=== PATIENT | female | born 1985 | race Two or more races ===

== ENCOUNTER 2018-12-13 13:25 | Emergency (ER) | payer OTHER ==
[2018-12-13 13:36] VITALS: BP 100/68; PULSE 56; TEMP 97.8; BMI 24.2
--- NOTE | 2018-12-13 15:07 | PDOC ---
History of Present Illness - General Chief Complaint: Abscess Boil Stated Complaint: CYST Time Seen by Provider: 12/13/18 13:39 History Source: Patient Exam Limitations: No Limitations Past History - Travel Traveled outside of the country in the last 30 days: No Close contact w/someone who was outside of country & ill: No - Past Medical History Allergies/Adverse Reactions: Allergies Allergy/AdvReac Type Severity Reaction Status Date / Time No Known Allergies Allergy Verified 12/13/18 13:36 Home Medications: Ambulatory Orders Ibuprofen [Motrin -] 600 mg PO TID #40 tablet 04/15/13 Cephalexin Monohydrate [Keflex -] 500 mg PO BID #14 capsule 12/13/18 Sulfamethoxazole/Trimethoprim [Bactrim Ds -] 1 tab PO BID #14 tablet 12/13/18 Asthma: Yes COPD: No Other medical history: MRSA 2017 abscess to eye cleared in [place] - Surgical History Appendectomy: Yes - Psycho Social/Smoking Cessation Hx Smoking History: Never smoked Review of Systems - Review of Systems Able to Perform ROS?: Yes Comments:: 12/13/18 15:03 CONSTITUTIONAL: Absent: fever, chills, diaphoresis, generalized weakness, malaise, loss of appetite HEENT: Absent: rhinorrhea, nasal congestion, throat pain, throat swelling, difficulty swallowing, mouth swelling, ear pain, eye pain, visual Changes CARDIOVASCULAR: Absent: chest pain, loss of consciousness, palpitations, irregular heart rate, peripheral edema RESPIRATORY: Absent: cough, shortness of breath, dyspnea with exertion, orthopnea, wheezing, stridor, hemoptysis GASTROINTESTINAL: Absent: abdominal pain, abdominal distension, nausea, vomiting, diarrhea, constipation, melena, hematochezia GENITOURINARY: Absent: dysuria, frequency, urgency, hesitancy, hematuria, flank pain, genital pain MUSCULOSKELETAL: Absent: myalgia, arthralgia, joint swelling SKIN: Present: abscess to R side of head Absent: rash, itching, pallor HEMATOLOGIC/IMMUNOLOGIC: Absent: easy bleeding, easy bruising, lymphadenopathy, frequent infections ENDOCRINE: Absent: unexplained weight gain, unexplained weight loss, heat intolerance, cold intolerance NEUROLOGIC: Absent: headache, focal weakness or paresthesias, dizziness, unsteady gait, seizure, mental status changes, bladder or bowel incontinence PSYCHIATRIC: Absent: anxiety, depression, suicidal or homicidal ideation, hallucinations. Is the patient limited Peruvian proficient: No *Physical Exam - Vital Signs Last Vital Signs Temp Pulse Resp BP Pulse Ox 97.8 F 56 L 18 100/68 99 12/13/18 13:28 12/13/18 13:28 12/13/18 13:28 12/13/18 13:28 12/13/18 13:28 - Physical Exam Comments: 12/13/18 16:53 GENERAL: The patient is awake, alert, and fully oriented, in no acute distress. HEAD: Normal with no signs of trauma. EYES: Pupils equal, round and reactive to light, extraocular movements intact, sclera anicteric, conjunctiva clear. EXTREMITIES: Normal range of motion, no edema. NEUROLOGICAL: Normal speech, normal gait. PSYCH: Normal mood, normal affect. SKIN: 1cm round fluctuant area with overlying erythema to the R frontal scalp just superior to the ear. There is a head to the area. Warm, Dry, normal turgor , no rashes or lesions noted. Procedures - Incision and Drainage I&D Site: Right: Other Anesthesia: 1% Lidocaine Volume(ml): 3 Blade Size: 11 Attempts: 1 Iodinated Packin/2 in Medical Decision Making - Medical Decision Making 12/13/18 18:59 The patient is a 33 y/o F with no PMH presents to the ER today with pain and redness to the R side of her head. She states she was told she had a sebaceous cyst in the area. She believes she had an ingrown hair over the cyst that got infected and now the area is tender to touch. She notes that it is red and has a head to it. She admits to headache. Denies fevers, chills, visual changes, nausea, vomiting and diarrhea. A/P: Cellulitis/abscess I&D performed to the right head. Minimal drainage noted. No sebaceous cysts noted most likely a lipoma. Suspect that an ingrown hair cause cellulitis over the lipoma. Wound was packed and patient was referred to dermatology. Bactrim and Keflex started. Patient has history of MRSA Wound culture taken Patient told to return in 2 days for wound check Discharge home I discussed the physical exam findings, ancillary test results and final diagnoses with the patient. I answered all of the patient's questions. The patient was satisfied with the care received and felt comfortable with the discharge plan and treatment plan. The Patient agrees to follow up with the primary care physician/specialist within 24-72 hours. Return precautions were given. Discharge - Discharge Information Problems reviewed: Yes Clinical Impression/Diagnosis: Encounter for incision and drainage procedure Lipoma Qualifiers: Lipoma location: head Qualified Code(s): D17.0 - Benign lipomatous neoplasm of skin and subcutaneous tissue of head, face and neck Condition: Stable Disposition: HOME - Admission No - Additional Discharge Information Prescriptions: Cephalexin Monohydrate [Keflex -] 500 mg PO BID #14 capsule Sulfamethoxazole/Trimethoprim [Bactrim Ds -] 1 tab PO BID #14 tablet - Follow up/Referral - Patient Discharge Instructions Patient Printed Discharge Instructions: Lipoma, DI for Incision and Drainage of a Skin Abscess Additional Instructions: You were evaluated for your skin infection today It was likely an ingrown hair that irritated a lipoma in your scalp The area was drained Please return in two days to have the packing removed. Please take the Bactrim and Keflex twice a day for one week. Please take all the antibiotics even if you feel better. Please avoid shaving the skin around the area of redness. You may take Tylenol or Motrin as needed for pain. Please follow up with your primary care doctor in 1 week. Return to the emergency department if you have worsening redness, fevers, increasing pain, or have any changes in your symptoms. - Post Discharge Activity Work/Back to School Note: Back to Work
== END 2018-12-13 15:42 | disposition home or self-care (01) ==
LOC: JERFT 13:25
PROC: 0J900ZZ Drainage of Scalp Subcutaneous Tissue and Fascia, Open Approach (ICD-10-PCS; principal; 2018-12-13)
DX: D17.0 Benign lipomatous neoplasm of skin and subcutaneous tissue of head, face and neck (principal); L03.811 Cellulitis of head [any part, except face]
CPT/HCPCS: 87070; 87205; 99282-25

== ENCOUNTER 2020-07-09 19:24 | Emergency (ER) | payer OTHER ==
[2020-07-09 19:36] VITALS: TEMP 98.1; BMI 31.8
[2020-07-09] MEDS ORDERED: SODIUM CHLORIDE 1,000 ML IV STA (20:07)
[2020-07-09] MEDS ORDERED: ONDANSETRON 4 MG/2 ML VIAL IVPUSH ONE (20:16)
[2020-07-09] MEDS ORDERED: ONDANSETRON 4 MG/2 ML VIAL ONE (20:21)
[2020-07-09 20:23] LABS: BASO % 3.5 % (0-2.0); EOS % 0.8 % (0-4.5); HEMATOCRIT 34.9 % (32.4-45.2); LYMPH % 13.1 % (8-40); MCH 31.7 pg (25.7-33.7); MCHC 34.4 g/dl (32.0-36.0); MEAN CELL VOLUME 92.1 fl (80-96); MEAN PLT VOLUME 8.8 fl (7.5-11.1); MONO % 6.2 % (3.8-10.2); NEUT % 76.4 % (42.8-82.8); PLATELET COUNT 254 K/MM3 (134-434); RBC 3.79 M/mm3 (3.60-5.2); RDW 12.1 % (11.6-15.6); WHITE BLOOD COUNT 14.7 K/mm3 (4.0-10.8)
[2020-07-09 20:40] LABS: ALBUMIN 3.1 g/dl (3.4-5.0); BILIRUBIN,TOTAL 0.2 mg/dl (0.2-1); CALCIUM 8.9 mg/dl (8.5-10); CREATININE 0.6 mg/dl (0.55-1.3); TOT PROT 6.4 g/dl (6.4-8.2)
[2020-07-09 21:41] VITALS: BP 97/63; PULSE 88
== END 2020-07-09 21:46 | disposition home or self-care (01) ==
LOC: FER 19:24
PROC: 3E033GC Introduction of Other Therapeutic Substance into Peripheral Vein, Percutaneous Approach (ICD-10-PCS; principal; 2020-07-09)
PROC: 3E0337Z Introduction of Electrolytic and Water Balance Substance into Peripheral Vein, Percutaneous Approach (ICD-10-PCS; 2020-07-09)
DX: O21.1 Hyperemesis gravidarum with metabolic disturbance (principal)
CPT/HCPCS: 36415; 80053; 85025; 99284-25

== ENCOUNTER 2020-10-18 06:30 | Inpatient (IN) | payer OTHER ==
[2020-10-18] MEDS: ELECTROLYTE-148 SOLN 1,000 ML IV SCH (07:30)
[2020-10-18] MEDS ORDERED: CITRIC ACID/SODIUM CITRATE 30 ML UNIT-DOSE CUP PO ONE (07:47)
[2020-10-18 08:27] VITALS: BMI 39.0
[2020-10-18] MEDS ORDERED: morphine SULFATE/PF 0.5 MG/ML (2cc Syringe - QUVA) ONE (08:54)
[2020-10-18] MEDS ORDERED: morphine SULFATE/PF 0.5 MG/ML (2cc Syringe - QUVA) SPIN ONE (09:06)
[2020-10-18] MEDS ORDERED: KETOROLAC TROMETHAMINE 30 MG/1 ML VIAL ONE (09:10)
[2020-10-18] MEDS ORDERED: ONDANSETRON 4 MG/2 ML VIAL ONE (09:10)
[2020-10-18] MEDS ORDERED: ceFAZolin SODIUM 1 GM VIAL ONE (09:10)
[2020-10-18] MEDS ORDERED: OXYTOCIN 10 UNITS/ML VIAL ONE (09:10)
[2020-10-18] MEDS ORDERED: ERYTHROMYCIN 0.5% OPHTHALMIC OINTMENT 3.5 GM TUBE OU ONE (10:00)
[2020-10-18] MEDS ORDERED: PHYTONADIONE NEONATAL 1 MG/0.5 ML AMP IM ONE (10:00)
[2020-10-18] MEDS ORDERED: ACETAMINOPHEN 1000 MG/100 ML VIAL (NON FORMULARY) IVPB PRN (10:12)
[2020-10-18] MEDS ORDERED: IBUPROFEN 800 MG/8 ML IJ IVPB PRN (10:12)
[2020-10-18] MEDS ORDERED: ONDANSETRON 4 MG/2 ML VIAL IVPB PRN (10:12)
[2020-10-18] MEDS ORDERED: ONDANSETRON 4 MG/2 ML VIAL IVPUSH PRN (10:39)
[2020-10-18] MEDS: OXYTOCIN 20 UNITS in 0.9% NS 20 UNIT/1,000 ML INFUS.BAG IV SCH (10:45)
[2020-10-18] MEDS ORDERED: ACETAMINOPHEN INJECTION 100 ML IVPB ONE (11:19)
[2020-10-18] MEDS: CEFAZOLIN 2 GM/D5W 2 GM/50 ML ML IVPB SCH (17:51)
[2020-10-18] MEDS ORDERED: CEFAZOLIN 2 GM in DEXTROSE 5%-WATER - 50 ML IVPB SCH (18:00)
[2020-10-18] MEDS: IBUPROFEN 600 MG TABLET (FP) PO PRN (22:01)
[2020-10-18] MEDS: ACETAMINOPHEN 325 MG TABLET (FP) PO PRN (22:02)
[2020-10-18] MEDS: SIMETHICONE 80 MG TAB.CHEW (FP) PO PRN (22:02)
[2020-10-19] MEDS: CEFAZOLIN 2 GM/D5W 2 GM/50 ML ML IVPB SCH (01:04)
[2020-10-19] MEDS: IBUPROFEN 600 MG TABLET (FP) PO PRN ×5 (01:04→23:11)
[2020-10-19] MEDS: oxyCODONE HCL 5 MG TABLET PO PRN ×4 (01:05→23:12)
[2020-10-19] MEDS: ACETAMINOPHEN 325 MG TABLET (FP) PO PRN ×4 (07:59→23:11)
[2020-10-19] MEDS: SIMETHICONE 80 MG TAB.CHEW (FP) PO PRN ×4 (08:01→23:10)
[2020-10-19] MEDS ORDERED: BISACODYL 10 MG SUPP.RECT RC PRN (10:12)
[2020-10-19] MEDS: ENOXAPARIN NA (PORCINE) 30 MG/0.3 ML DISP.SYRIN SQ SCH (10:24)
[2020-10-19 11:32] LABS: BASO % 0.2 % (0-2.0); EOS % 0.9 % (0-4.5); HEMATOCRIT 27.2 % (32.4-45.2); HEMOGLOBIN 9.3 GM/dL (10.7-15.3); LYMPH % 11.4 % (8-40); MCH 29.6 pg (25.7-33.7); MCHC 34.2 g/dl (32.0-36.0); MEAN CELL VOLUME 86.5 fl (80-96); MEAN PLT VOLUME 8.6 fl (7.5-11.1); MONO % 6.5 % (3.8-10.2); PLATELET COUNT 180 10^3/uL (134-434); RBC 3.14 M/mm3 (3.60-5.2); RDW 15.7 % (11.6-15.6); WHITE BLOOD COUNT 12.1 K/mm3 (4.0-10.0)
[2020-10-19] MEDS: LACTATED RINGERS SOLUTION 1,000 ML IV SCH ×2 (22:39→22:40)
[2020-10-19] MEDS: OXYTOCIN 20 UNITS in 0.9% NS 20 UNIT/1,000 ML INFUS.BAG IV SCH (22:40)
[2020-10-19] MEDS: ELECTROLYTE-148 SOLN 1,000 ML IV SCH (22:40)
[2020-10-19] MEDS: SENNOSIDES/DOCUSATE COMBO (SENNA PLUS) TABLET (UD) PO PRN (23:10)
[2020-10-20] MEDS: ACETAMINOPHEN 325 MG TABLET (FP) PO PRN ×2 (03:36→08:55)
[2020-10-20] MEDS: SIMETHICONE 80 MG TAB.CHEW (FP) PO PRN (03:37)
[2020-10-20] MEDS: IBUPROFEN 600 MG TABLET (FP) PO PRN ×2 (03:37→08:54)
[2020-10-20] MEDS: oxyCODONE HCL 5 MG TABLET PO PRN (04:54)
[2020-10-20] MEDS: SENNOSIDES/DOCUSATE COMBO (SENNA PLUS) TABLET (UD) PO PRN (08:56)
[2020-10-20] MEDS: ENOXAPARIN NA (PORCINE) 30 MG/0.3 ML DISP.SYRIN SQ SCH (10:15)
[2020-10-20 10:38] VITALS: BP 115/66; PULSE 87; TEMP 98.3
== END 2020-10-20 17:22 | disposition home or self-care (01) | DRG 788 ==
LOC: JLDR 06:30 → J3W 12:30
PROVIDERS: ADMIT Specialist; ATTEND Specialist
PROC: 10D00Z1 Extraction of Products of Conception, Low, Open Approach (ICD-10-PCS; principal; 2020-10-18)
DX: O34.219 Maternal care for unspecified type scar from previous cesarean delivery (principal); Z3A.38 38 weeks gestation of pregnancy; Z37.0 Single live birth
CPT/HCPCS: 36415; 85025; 88307-TC; J0131